=== PATIENT | female | born 1975 | race Caucasian/White ===

== ENCOUNTER → 2018-01-21 | Outpatient (CLI) | payer BC | LOC: MC.RAD 13:00 | DX: Z12.31 Encounter for screening mammogram for malignant neoplasm of breast (principal) ==

== ENCOUNTER → 2024-03-09 | Outpatient (CLI) | payer BC | LOC: MC.RAD 11:13 | DX: Z12.31 Encounter for screening mammogram for malignant neoplasm of breast (principal) ==

== ENCOUNTER 2024-07-30 18:57 | Emergency (ER) | payer BC ==
[~2024-07-30] VITALS: Ht 160 cm; Wt 68.2 kg
[2024-07-30 23:08] VITALS: BP 152/84; PULSE 97; TEMP 98
== END 2024-07-30 23:08 | disposition home or self-care (01) ==
LOC: COL.ER 18:57
DX: S16.1XXA Strain of muscle, fascia and tendon at neck level, initial encounter (principal); V89.2XXA Person injured in unspecified motor-vehicle accident, traffic, initial encounter; Y92.410 Unspecified street and highway as the place of occurrence of the external cause